=== PATIENT | male | born 2000 | race Caucasian/White ===

== ENCOUNTER 2022-12-11 07:46 | Emergency (ER) | payer BC, SELFPAY ==
[2022-12-11] VITALS (16 sets, daily range): BP systolic 110–136; BP diastolic 81–88; PULSE 59–100; RESP 13–22; TEMP 36.3; O2SAT 97–100
--- NOTE | ~2022-12-11 | XR_ITS ---
Clinical Indication: Chest pain PA and lateral views of the chest: Comparison: 03/30/2004 Findings: The lungs are clear, without evidence of focal consolidation or pleural effusion. Cardiome diastinal silhouette is within normal limits. Bones and soft tissues are unremarkable. Impression: Normal chest. Reviewed, dictated and finalized at location . Impression: Normal chest.
--- NOTE | 2022-12-11 08:07 | ECG_ITS ---
Measurements Intervals [place] Rate: 86 P: 64 CT: 144 QRS: 55 QRSD: 94 T: 38 QT: 335 QTc: 401 Interpretive Statements SINUS RHYTHM NORMAL ECG NO PREVIOUS ECG AVAILABLE FOR COMPARISON Electronically Signed On 12-11-2022 8:27:48 CDT by Bryant Chritsensen D.O.
[2022-12-11] MEDS: KETOROLAC 30 MG/ML VIAL (*BKC) IV PUSH (08:14)
--- NOTE | 2022-12-11 08:24 | PC.NURSE ---
Pt went to XRay via wheelchair.
[2022-12-11 08:30] LABS: Basophils Absolute Auto 0.1 K/mm3 (0.0-0.1); Basophils Percent Auto 0.6 % (0.2-1.2); Eosinophils Absolute Auto 0.5 K/mm3 (0-0.3); Eosinophils Percent Auto 4.3 % (0-4.4); Immature Granulocyte Absolute 0.04 K/mm3 (0.00-0.031); Immature Granulocyte Percent A 0.3 % (0-0.5); Lymphocytes Absolute Auto 4.91 K/mm3 (0.9-3.2); Lymphocytes Percent Auto 41.8 % (18.3-44.2); Mean Corpuscular HGB Conc 34.1 g/dl (32-36); Mean Corpuscular Hemoglobin 29.9 pg (26-34); Mean Corpuscular Volume 87.6 fl (80-100); Mean Platelet Volume 10.7 fl (7.4-10.4); Monocytes Absolute Auto 1.2 K/mm3 (0.1-0.6); Monocytes Percent Auto 9.8 % (2.6-8.5); Neutrophils Absolute Auto 5.1 K/mm3 (1.3-6.7); Neutrophils Percent Auto 43.2 % (45.5-73.1); Platelet Count Result 277 k/mm3 (150-375); Red Blood Count 5.02 M/mm3 (4.6-6.20); Red Cell Distribution Width 12.9 % (11.5-14.5); White Blood Count 11.8 K/mm3 (4.5-10.0)
[2022-12-11 08:43] LABS: Alanine Aminotransferase 105 U/L (6-50); Albumin Level 4.7 g/dL (3.5-5.1); Alkaline Phosphatase 108 U/L (38-126); Anion Gap 8 mmol/L (8-16); Aspartate Amino Transferase 50 U/L (17-59); Bilirubin,Total 1.1 mg/dL (0.2-1.3); Blood Urea Nitrogen 13 mg/dL (9-20); Calcium 9.7 mg/dL (8.4-10.2); Carbon Dioxide 31 mmol/L (22-30); Chloride 99 mmol/L (98-107); Estimated Glomerular Filt Rate > 60; Glucose 105 mg/dL (65-110); Potassium 3.6 mmol/L (3.4-5.0); Sodium 138 mmol/L (137-145)
[2022-12-11 08:47] LABS: Prothrombin Time 13.6 Seconds (11.1-14.7)
[2022-12-11 08:48] LABS: Partial Thromboplastin Time 28.9 SECONDS (22.3-36.8)
[2022-12-11 08:51] LABS: Troponin I < 0.012 ng/mL (0.000-0.034)
--- NOTE | 2022-12-11 09:18 | PC.NURSE ---
Pt mother called for an update. Pt agreed for RN to give information.
--- NOTE | 2022-12-11 09:56 | ED.CHESTPAIN ---
HPI - Chest Pain General Chief Complaint: Chest Pain Stated Complaint: cp Time Seen by Provider: 12/11/22 07:52 History of Present Illness HPI narrative: Patient is a 22-year-old male who presents ER with right-sided chest pain. It is near the nipple. Began last night while he was lifting boxes at work. No exertional chest discomfort. No difficulty breathing. No runny nose or sore throat or productive cough. No personal heart history or family history of heart disease. It is found no modifying factors. Related Data Home Medications Medication Instructions Recorded Confirmed lisdexamfetamine 50 mg capsule 50 mg PO DAILY 06/16/19 (Vyvanse) Allergies Allergy/AdvReac Type Severity Reaction Status Date / Time No Known Allergies Allergy Verified 12/11/22 07:59 Review of Systems Review of Systems: All systems reviewed & are unremarkable except as noted in HPI and below Constitutional: Constitutional: Denies chills, Denies fatigue and Denies fever(s) ENT: Denies nasal congestion and Denies sore throat Cardiovascular: Cardiovascular: Reports chest pain, Denies rapid heart rate and Denies radiating jaw, neck or arm pain Respiratory: Respiratory: Denies cough, Denies dyspnea and Denies wheezing Gastrointestinal: Gastrointestinal: Denies abdominal pain, Denies nausea and Denies vomiting PMFSH Past Medical History Medical History (Updated 12/11/22 @ 09:57 by Brennan Hampton MD) History of ADHD Surgical History Surgical History (Updated 06/16/19 @ 10:14 by Macarena Mcgowan PA-C) Status post myringotomy with insertion of tube Social History Social History (Updated 06/16/19 @ 10:14 by Macarena Mcgowan PA-C) Smoking status: Never smoker Exam Narrative: GENERAL: Well-appearing, well-nourished, and in no acute distress. HEAD: Normocephalic, atraumatic. ENT:Mucous membranes moist. NECK: Supple. CHEST: Clear to auscultation. No respiratory distress. Mild tenderness with palpation right anterior chest wall. HEART: Regular rate and rhythm. Normal peripheral pulses. ABDOMEN: Soft, nontender, nondistended. EXTREMITIES: Normal range of motion. No edema. SKIN: Warm, dry, no rash. NEURO: Alert and oriented x3. PSYCH: Flat mood/affect. Course Course Emergency Course: Patient resting comfortably. Pain improved with Toradol. Discussed lab and x-ray findings as well as normal EKG. Patient felt appropriate for discharge home. Vital Signs Vital signs: Vital Signs Temperature 97.4 F L 12/11/22 07:55 Pulse Rate 98 12/11/22 07:55 Respiratory Rate 17 12/11/22 07:55 Blood Pressure 134/88 12/11/22 07:55 Pulse Oximetry 100 12/11/22 07:55 Temperature 97.4 F L 12/11/22 07:55 Pulse Rate 60 12/11/22 09:45 Respiratory Rate 13 12/11/22 09:45 Blood Pressure 119/84 12/11/22 09:15 Pulse Oximetry 100 12/11/22 09:45 MDM - Chest Pain Lab Data 12/11/22 08:23 12/11/22 08:23 Labs: Lab Results 12/11/22 Range/Units 08:23 WBC 11.8 H (4.5-10.0) K/mm3 RBC 5.02 (4.6-6.20) M/mm3 Hgb 15.0 (14.0-18.0) g/dL Hct 44.0 (42.0-52.0) % MCV 87.6 (80-100) fl MCH 29.9 (26-34) pg MCHC 34.1 (32-36) g/dl RDW 12.9 (11.5-14.5) % Plt Count 277 (150-375) k/mm3 MPV 10.7 H (7.4-10.4) fl Immature Gran % (Auto) 0.3 (0-0.5) % Neut % (Auto) 43.2 L (45.5-73.1) % Lymph % (Auto) 41.8 (18.3-44.2) % [place] % (Auto) 9.8 H (2.6-8.5) % Eos % (Auto) 4.3 (0-4.4) % Baso % (Auto) 0.6 (0.2-1.2) % Lymph # (Auto) 4.91 H (0.9-3.2) K/mm3 [place] # (Auto) 1.2 H (0.1-0.6) K/mm3 Eos # (Auto) 0.5 H (0-0.3) K/mm3 Baso # (Auto) 0.1 (0.0-0.1) K/mm3 Abs Immat Gran (auto) 0.04 H (0.00-0.031) K/mm3 Absolute Neuts (auto) 5.1 (1.3-6.7) K/mm3 Absolute Nucleated RBC 0.0 (0.0-0.012) K/mm3 Nucleated RBC % 0.0 (0.0-0.2) % PT 13.6 (11.1-14.7) Seconds INR 1.0 APTT 28.9 (22.3-36.8) SECONDS Sodium 138 (137-14
== END 2022-12-11 10:00 | disposition home or self-care (01) ==
PROVIDERS: Emergency Provider Emergency Medicine; PCP Nurse Practitioner Family
DX: R07.89 Other chest pain (principal); F90.9 Attention-deficit hyperactivity disorder, unspecified type
CPT/HCPCS: 36415; 71046; 80053; 84484; 85025; 85610; 85730; 93005; 96374; 99284; J1885

== ENCOUNTER 2023-09-19 13:23 | Emergency (ER) | payer BC, SELFPAY ==
--- NOTE | ~2023-09-19 | US_ITS ---
EXAMINATION: US scrotum doppler DATE: 09/19/2023 14:40 INDICATION: Left scrotal abscess. TECHNIQUE: Grayscale and Doppler ultrasound images of the testes were obtained. COMPARISON: None. FINDINGS: The right testis measures 3.9 x 2.6 x 2.6 cm. The left testis measures 4.4 x 2.8 x 2.4 cm. There is normal vascular flow to both testes. The right epididymis demonstrates a 3 mm cyst. The left epididymis is normal with normal vascular flow. There is no varicocele or hydrocele. There is scrota l skin thickening on the left. No drainable abscess. IMPRESSION: 1. Scrotal skin thickening on the left. No drainable abscess. Reviewed, dictated and finalized at location A.
[2023-09-19 13:25] VITALS: BP 131/77; PULSE 90; RESP 16; TEMP 36.8; O2SAT 99
--- NOTE | 2023-09-19 13:56 | ED.SKABFB ---
HPI - Skin/Abscess/Foreign Bdy General Chief complaint: Skin/Abscess/Foreign Body Stated complaint: testicle absess, drainage Time Seen by Provider: 09/19/23 13:58 Focused HPI: Omid is a 23-year-old male patient presenting to the emergency room today with complaints of possible testicle abscess/drainage. He reports that his left testicle became swollen on Sunday and over the last day or 2 is began to drain. Is having brown bloody discharge with redness and swelling to the left testicle. Drainage is coming from the left upper scrotum General: Well-developed, well nourished, in no apparent distress. Head: Normocephalic, atraumatic. Cardio: Regular rate and rhythm, s1 and s2 normal, no murmur appreciated. Resp: Clear to auscultation bilaterally, no rhonchi, rales, wheezing or rubs. Abdomen: Soft, pliable, bowel sounds present in all quadrants, non-tender to palpation, no organomegly, no CVAT tenderness. : Circumcised male with left testicular swelling, redness, very tender to palpation with induration, brown bloody drainage noted to the left upper scrotum Patient screened in triage and initial orders placed. Additional care and disposition to be based upon diagnostic testing and treatment. Source: patient Mode of arrival: ambulatory Limitations: no limitations Related Data Allergies Allergy/AdvReac Type Severity Reaction Status Date / Time No Known Allergies Allergy Verified 12/11/22 07:59 [facility] Past Medical History Medical History History of ADHD Surgical History Surgical History Status post myringotomy with insertion of tube Social History Social History Smoking status: Never smoker Comments At the time of my signature, I reviewed and agree with the nursing past medical, surgical, social, and family history. There is no relevant family history pertinent to the patient complaint. Course Course Emergency Course: Portions of this record may have been created with voice recognition software. Vital Signs Vital signs: Vital Signs Temperature 36.8 C 09/19/23 13:25 Pulse Rate 90 09/19/23 13:25 Respiratory Rate 16 09/19/23 13:25 Blood Pressure 131/77 09/19/23 13:25 Pulse Oximetry 99 09/19/23 13:25 Temperature 36.8 C 09/19/23 17:38 Pulse Rate 87 09/19/23 17:38 Respiratory Rate 16 09/19/23 17:38 Blood Pressure 138/64 09/19/23 17:38 Pulse Oximetry 99 09/19/23 17:38 Vital signs reviewed MDM - Skin/Abscess/Foreign Bdy Lab Data 09/19/23 14:14 09/19/23 14:13 Labs: Lab Results 09/19/23 09/19/23 Range/Units 14:13 14:14 WBC 14.6 H (4.5-10.0) K/mm3 RBC 5.06 (4.6-6.20) M/mm3 Hgb 15.0 (14.0-18.0) g/dL Hct 44.4 (42.0-52.0) % MCV 87.7 (80-100) fl MCH 29.6 (26-34) pg MCHC 33.8 (32-36) g/dl RDW 12.3 (11.5-14.5) % Plt Count 303 (150-375) k/mm3 MPV 11.0 H (7.4-10.4) fl Immature Gran % (Auto) 0.4 (0-0.5) % Neut % (Auto) 71.0 (45.5-73.1) % Lymph % (Auto) 20.5 (18.3-44.2) % [place] % (Auto) 6.3 (2.6-8.5) % Eos % (Auto) 1.4 (0-4.4) % Baso % (Auto) 0.4 (0.2-1.2) % Lymph # (Auto) 2.99 (0.9-3.2) K/mm3 [place] # (Auto) 0.9 H (0.1-0.6) K/mm3 Eos # (Auto) 0.2 (0-0.3) K/mm3 Baso # (Auto) 0.1 (0.0-0.1) K/mm3 Abs Immat Gran (auto) 0.06 H (0.00-0.031) K/mm3 Absolute Neuts (auto) 10.3 H (1.3-6.7) K/mm3 Absolute Nucleated RBC 0.000 (0.0-0.012) K/mm3 Nucleated RBC % 0.0 (0.0-0.2) % Sodium 138 (137-145) mmol/L Potassium 4.2 (3.4-5.0) mmol/L Chloride 105 (98-107) mmol/L Carbon Dioxide 25 (22-30) mmol/L Anion Gap 8 (4-12) mmol/L BUN 11 (9-20) mg/dL Creatinine 0.80 (0.7-1.3) mg/dL Estim Creat Clear Calc 117 ml/min Estimated GFR > 60 (59 - ) Glucose 99 (65-110) mg/dL Lact
[2023-09-19 14:36] LABS: Alanine Aminotransferase 61 U/L (6-50); Alkaline Phosphatase 120 U/L (38-126); Anion Gap 8 mmol/L (4-12); Aspartate Amino Transferase 43 U/L (17-59); Bilirubin,Total 1.5 mg/dL (0.2-1.3); Blood Urea Nitrogen 11 mg/dL (9-20); Calcium 10.1 mg/dL (8.4-10.2); Carbon Dioxide 25 mmol/L (22-30); Chloride 105 mmol/L (98-107); Estimated CRCL calculation 117 ml/min; Estimated Glomerular Filt Rate > 60; Glucose 99 mg/dL (65-110); Potassium 4.2 mmol/L (3.4-5.0); Sodium 138 mmol/L (137-145)
[2023-09-19 14:38] LABS: Basophils Absolute Auto 0.1 K/mm3 (0.0-0.1); Basophils Percent Auto 0.4 % (0.2-1.2); Eosinophils Absolute Auto 0.2 K/mm3 (0-0.3); Eosinophils Percent Auto 1.4 % (0-4.4); Hematocrit 44.4 % (42.0-52.0); Immature Granulocyte Absolute 0.06 K/mm3 (0.00-0.031); Immature Granulocyte Percent A 0.4 % (0-0.5); Lymphocytes Absolute Auto 2.99 K/mm3 (0.9-3.2); Lymphocytes Percent Auto 20.5 % (18.3-44.2); Mean Corpuscular HGB Conc 33.8 g/dl (32-36); Mean Corpuscular Hemoglobin 29.6 pg (26-34); Mean Corpuscular Volume 87.7 fl (80-100); Monocytes Absolute Auto 0.9 K/mm3 (0.1-0.6); Monocytes Percent Auto 6.3 % (2.6-8.5); Neutrophils Absolute Auto 10.3 K/mm3 (1.3-6.7); Platelet Count Result 303 k/mm3 (150-375); Red Blood Count 5.06 M/mm3 (4.6-6.20); Red Cell Distribution Width 12.3 % (11.5-14.5); White Blood Count 14.6 K/mm3 (4.5-10.0)
[2023-09-19 15:29] LABS: Appearance Urine Cloudy (Clear); Bacteria Urine None Seen /hpf; Bilirubin Urine Negative (Negative); Blood Urine Negative (Negative); Color Urine Yellow (Yellow); Glucose Urine UA Negative (Negative); Ketones Urine Trace mg/dL (Negative); Leukocyte Esterase Ur Negative LEU/UL (Negative); Need Manual Microscopic Reviewed; Nitrate Urine Negative (Negative); Protein Urine Negative (Negative); RBC Urine 0-2 /hpf (0-2); Squamous Epithelial Cell Urine None Seen /hpf (Few); WBC Urine 0-5 /hpf (0-3); pH Urine 6.5 (5.0-9.0)
[2023-09-19 15:47] LABS: Add Urine Microscopic? YES; Specific Grav Ur 1.033 (1.001-1.035)
--- NOTE | 2023-09-19 16:20 | ED.GENADULT ---
HPI - General Adult General Chief complaint: Skin/Abscess/Foreign Body Stated complaint: testicle absess, drainage Time Seen by Provider: 09/19/23 13:58 Source: patient Mode of arrival: ambulatory Limitations: no limitations History of Present Illness HPI narrative: 23 years old white male came to the hospital by private car from home complaining of pain, swelling and discharge from the left side of his scrotum started 4 days ago. Denies any fever, chills, nausea, vomiting or any recent trauma. Patient not on any medications at home, not sexually active Related Data Allergies Allergy/AdvReac Type Severity Reaction Status Date / Time No Known Allergies Allergy Verified 12/11/22 07:59 Review of Systems Review of Systems: All systems reviewed & are unremarkable except as noted in HPI and below PMFSH Past Medical History Medical History History of ADHD Surgical History Surgical History Status post myringotomy with insertion of tube Social History Social History Smoking status: Never smoker Exam Narrative: General appearance: Well-developed, well-nourished Skin: Normal color Head: Normocephalic, nontraumatic Eyes: Clear conjunctiva ENT: Oropharynx normal, ears normal, nose normal Neck: Supple, nontender Chest and respiratory: Airway patent, no respiratory distress, no accessory muscle use Heart: Regular rate/rhythm Abdomen: Soft, nontender, no organomegaly, quiet bowel sounds Vascular: Normal peripheral pulses, normal capillary refill. Musculoskeletal: Normal range of motion, nontender back Neurologic: Alert and oriented ?3, TEMPLATE MAKER is normal as tested, no gross motor deficit : Scrotum: scrotal swelling (Diffuse swelling, tenderness, redness left side of the testicles with purul) on the left Course Consultations Consultation #1: DR WU REQUESTED TO DISCHARGE PATIENT HOME ON AUGMENTIN AND HIS PLAN TO SEE HIM COMING 4-5 DAYS Date: 09/19/23 Time: 17:12 Vital Signs Vital signs: Vital Signs Temperature 36.8 C 09/19/23 13:25 Pulse Rate 90 09/19/23 13:25 Respiratory Rate 16 09/19/23 13:25 Blood Pressure 131/77 09/19/23 13:25 Pulse Oximetry 99 09/19/23 13:25 Temperature 36.8 C 09/19/23 13:25 Pulse Rate 90 09/19/23 13:25 Respiratory Rate 16 09/19/23 13:25 Blood Pressure 131/77 09/19/23 13:25 Pulse Oximetry 99 09/19/23 13:25 Medical Decision Making MDM Narrative Medical decision making narrative: PATIENT PRESENTS WITH PAIN AND SWELLING AND REDNESS AND DISCHARGE FROM LEFT SIDE OF THE SCROTUM PHYSICAL EXAMINATION SHOWED 2 MM HOLE LEAKING PURULENT DISCHARGE AT THE LEFT SIDE OF THE SCROTUM CLOSE TO THE BASE OF THE PENIS, CULTURE OBTAINED, PATIENT RECEIVED 1 G OF INVANZ IV, SCROTAL ULTRASOUND SHOWED FINDING CONSISTENT WITH CELLULITIS, NO DRAINABLE ABSCESS. BLOOD WORKUP TODAY SHOWED WBC OF 14.6 CLEAN URINE, PATIENT TO BE DISCHARGED ON AUGMENTIN, DISCUSSED WITH DR. WU TO FOLLOW UP WITH HIM IN 5 DAYS Differential Diagnosis Differential Diagnosis: ABOVE Medical Records Medical records reviewed: Yes I reviewed the external patient's medical records. Vital Signs Vital Signs: Vital Signs Temperature 36.8 C 09/19/23 13:25 Pulse Rate 90 09/19/23 13:25 Respiratory Rate 16 09/19/23 13:25 Blood Pressure 131/77 09/19/23 13:25 Pulse Oximetry 99 09/19/23 13:25 Temperature 36.8 C 09/19/23 13:25 Pulse Rate 90 09/19/23 13:25 Respiratory Rate 16 09/19/23 13:25 Blood Pressure 131/77 09/19/23 13:25
[2023-09-19] MEDS: ERTAPENEM 1 GM/NS 50 ML 1 GM/50 ML BAG IVPB (16:58)
[2023-09-19 17:38] VITALS: BP 138/64; PULSE 87; RESP 16; TEMP 36.8; O2SAT 99
== END 2023-09-19 17:48 | disposition home or self-care (01) ==
PROVIDERS: Nurse Practitioner Family; Emergency Provider Emergency Medicine; PCP Nurse Practitioner Family
DX: N49.2 Inflammatory disorders of scrotum (principal)
CPT/HCPCS: 36415; 76870; 80053; 81001; 83605; 85025; 87040; 87070; 87147; 87181; 87205; 93976; 96365; 99284; J1335

== ENCOUNTER 2025-03-31 18:45 | Emergency (ER) | payer BC, SELFPAY ==
[2025-03-31 19:04] VITALS: BP 132/80; PULSE 76; RESP 16; TEMP 36.7; O2SAT 99
[2025-03-31 19:55] LABS: Add Urine Microscopic? YES; Appearance Urine Clear (Clear); Glucose Urine UA Negative (Negative); Leukocyte Esterase Ur Negative LEU/UL (Negative); Nitrate Urine Negative (Negative); Non Pathogenic Casts 0-2; Specific Grav Ur 1.038 (1.001-1.035)
--- NOTE | 2025-03-31 19:58 | ED_ITS ---
HPI - Back Pain/Injury General Chief Complaint: Back Pain/Injury Stated Complaint: low back pain, no injury, ambulatory Time Seen by Provider: 03/31/25 19:51 Source: patient Mode of arrival: ambulatory Limitations: no limitations History of Present Illness HPI Narrative: This is a 24-year-old male with no significant past medical history who presents to the ED for back pain. Patient states that he works at [employer] and yesterday began to have a low back pain. He does not recall any specific injury. Denies changes in urination, fevers, chills. Denies numbness, tingling. He tried ibuprofen with minimal relief. Related Data Allergies Allergy/AdvReac Type Severity Reaction Status Date / Time No Known Allergies Allergy Verified 03/31/25 18:46 Review of Systems Review of Systems: Gen.: Denies fevers or chills Eyes: Denies eye pain or visual change ENT: Denies congestion Respiratory: Denies shortness of breath or cough CV: Denies chest pain or palpitations GI: Denies abdominal pain nausea, emesis or diarrhea denies burning, urgency, frequency or hematuria Musculoskeletal: As per HPI Neuro: Denies numbness, tingling, weakness or focal weakness Skin: Denies rash Except as documented, all other systems reviewed and negative PMFSH Past Medical History Medical History History of ADHD Surgical History Surgical History Status post myringotomy with insertion of tube Social History Social History Smoking status: Never smoker Exam Narrative: APPEARANCE: No acute distress, nontoxic, resting in bed HEENT: Normocephalic, atraumatic, OMM RESPIRATORY: No respiratory distress CARDIOVASCULAR: Appears well perfused ABDOMINAL: Nondistended MUSCULOSKELETAl: Moves all extremities. No obvious deformities. Mild tenderness to palpation to the bilateral paraspinal upper lumbar muscles. No midline tenderness, step-offs, deformities. NEURO: Awake and alert. SKIN:: Warm, dry. No rashes lesions or abrasions PSYCHIATRIC: Normal affect/mood, Course Vital Signs Vital signs: Vital Signs Temperature 98.1 F 03/31/25 19:04 Pulse Rate 76 03/31/25 19:04 Respiratory Rate 16 03/31/25 19:04 Blood Pressure 132/80 03/31/25 19:04 Pulse Oximetry 99 03/31/25 19:04 Oxygen Delivery Room Air 03/31/25 19:04 Temperature 98.1 F 03/31/25 19:04 Pulse Rate 76 03/31/25 19:04 Respiratory Rate 16 03/31/25 19:04 Blood Pressure 132/80 03/31/25 19:04 Pulse Oximetry 99 03/31/25 19:04 Oxygen Delivery Room Air 03/31/25 19:04 MDM - Back Pain/Injury MDM Narrative Medical decision making narrative: 24-year-old male presenting for low back pain. On initial evaluation patient was in no acute distress, afebrile hemodynamically stable. He had mild lumbar paraspinal tenderness to palpation without midline spinal tenderness, step-offs, deformities. In no red flag signs for cauda equina or epidural abscess. Imaging is not indicated at this time. UA clear. Patient was given Toradol and Lidoderm. He was deemed appropriate for discharge at this time. He was given prescriptions for Lidoderm and Flexeril. He was educated Tylenol ibuprofen use. He was advised follow-up with his PCP in the next week for re-evaluation. Patient was agreeable to this plan. Given strict return precautions. Differential Diagnosis Differential diagnosis: Likely lumbar radiculopathy, strain of lumbar region and renal colic Lab Data Attestation: I reviewed the patient's lab results. Labs: Lab Results 03/31/25 Range/Units 19:43 Urine Color Yellow (Yellow) Urine Appearance Clear (Clear) Urine pH 6.5 (5.0-9.0) Ur Specific [place] 1.038 H (1.001-1.035) Urine Protein Trace (Negative) mg/dL Urine Glucose (UA) Negative (Negative) mg/dL Urine Ketones Trace H (Negative) mg/dL Ur Blood (Man) Negative (Negative) Urine Nitrate Negative (Negative) Urine Bilirubin Negative (Negative) Urine Urobilinogen 1.0 (<2.0) mg/dL Leukocyte Esterase Rfl Negative (Negative) JEAN/UL Urine RBC 0-2 (0-2) /hpf Urine WBC 0-5 (0-3) /hpf Ur Squamous Epith Cells None seen (Few) /hpf Urine Bacteria None seen /hpf Urine Casts 0-2 Discharge Plan Discharge Clinical Impression: Strain of lumbar region Qualifiers: Encounter type: initial encounter Qualified Code(s): S39.012A - Strain of muscle, fascia and tendon of lower back, initial encounter Patient Disposition: Home Condition: Stable Instructions: Antibiotic Form, Acute Low Back Pain (ED) Additional Instructions: You likely have a strain of your lumbar muscles. Take Tylenol and ibuprofen for this. You were also given prescriptions for Lidoderm and Flexeril, take these as prescribed. Follow up with her PCP in the next week for re-evaluation. Return to the ED for any new or worsening symptoms. For pain, discomfort or temperature greater than or equal to 100.8 ?F please alternate the following 2 medications as needed. First medication- acetaminophen/Tylenol- 1000mg every 6-8 hours as needed for above indications. Second medication- ibuprofen/Motrin-600mg every 6-8 hours as needed for above indication. Patient Language: [place] Citizen Prescriptions: New lidocaine [Lidoderm] 5 % adhesive patch,medicated 1 patch topical DAILY Qty: 15 0RF Rx Instructions: leave on most painful area for up to 12 hrs cyclobenzaprine 10 mg tablet 10 mg PO HS PRN (Reason: muscle spasm) Qty: 30 0RF No Action amoxicillin-pot clavulanate [Augmentin] 500-125 mg tablet 1 tablet PO Q8H Qty: 30 0RF Follow-up/Referrals: RAYNE,MARISOL RODRIGUEZ [Primary Care Provider] Stand Alone Forms: Work/School Release IP
[2025-03-31] MEDS: KETOROLAC 30 MG/ML VIAL (*BKC) IM (20:05)
[2025-03-31] MEDS: LIDOCAINE 5% PATCH 1 PATCH TRANSDERM (20:05)
--- OUTSIDE RECORDS SUMMARY | 2025-03-31 20:06 | XMS_ITS | Clinical Summary ---
Author Organization [facility] Address [address] [place] [address] Care Team Providers Care Box Feeder Name Role Phone Mey Akers APRN-MAJOR GIFTS MANAGER Primary Care Provider [phone] Source Comments [facility],non-owned Affiliates and Associated Physician Practices is amultiple site organization consisting of ambulatory clinics and hospital sitesin [place], [place], [place] and [place]. This disclosure is being madepursuant to the Care Everywhere program and may not contain all information available regarding this patient. Last updated 18.[facility] Allergies No known active allergies Medications * Be aware that medications may not be up to date on this document. Alwaysverify current medications with the patient. lisdexamfetamine (VYVANSE) 50 MG capsule Take 50 mg by mouth once daily 04/14/2019 Active Active Problems Problem Noted Date Diagnosed Date Periumbilical abdominal pain 05/06/2019 History of bloody stools 05/06/2019 History of colitis 05/06/2019 Chronic abdominal pain 03/13/2019 Colitis 03/13/2019 Blood in stool 03/13/2019 Frequent headaches - monitor Naproxen use 2018 ADHD (attention deficit hyperactivity disorder) 09/16/2014 Anger/aggression 09/16/2014 Immunizations Immunization Administration Dates Next Due DTaP VACCINE IM (6wk-6yrs) 10/15/2007,,2002,08/21,2002 FLU VACCINE TRI IIV3 SPLIT P F IM (FLUVIRIN) 06/08/2009 HEP A PEDS 2 DOSE 11/23/2006,02/03/2006 HEP B VACCINE, PED/ADOL 01/27/2003,2002, HIB BOOSTER 01/25/2004, 3,2002,06/23 Human Papilloma Virus Marvin valent Vaccine 06/29/2014,02/27/2014,12/18/2013 INFLUENZA VACCINE 04/09/2007,05/28/2006,04/27/20 03 INFLUENZA VACCINE, QUADR. (F LUZONE; FLULAVAL; FLUARIX; AFLURIA QUADRIVALENT; 6MO+), 0.5 ML (IIV4) 04/11/2018,03/23/2017,02/24/2016,05/27 Influenza Nasal 04/03/2011 DONOVAN VACCINE QUAD LAIV4 PF NASAL 02/27/2014,2012 MENINGOCOCCAL ACWY (MCV4P) VAC IM 11/21/2018,03/2014 MMR 10/15/2007,04/27/2003 PNEUMOCOCCAL CONJ, PEDS 04/27/2003,10/21,2002,06/23 POLIO IPV 10/15/2007, 4,2002,06/23 PPD 04/27/2003 TDAP (7yrs+) 12/18/2013 VARICELLA 10/15/2007,07/27/2003 Family History Medical History Relation Name Comments Other Maternal Aunt IBS Hypertension Maternal Grandmother Other Maternal Grandmother GERD Other Mother GERD Hypertension Paternal Grandfather Other Sister GERD, CP Celiac Disease Neg Hx Crohn's Disease Neg Hx Ulcerative Colitis Neg Hx Relation Name Status Comments Maternal Aunt Maternal Grandmother Mother Paternal Grandfather Sister Social History Tobacco Use Types Packs/Day Years Used Date Smoking Tobacco: Passive Smo ke Exposure - Never Smoker Smokeless Tobacco: Never Alcohol Use Standard Drinks/Week Comments Not Asked 0 (1 standard drink = 0.6 oz pur e alcohol) Sex and Gender Information Value Date Recorded Sex Assigned at Not on file Legal Sex Male 5:41 AM CURTAIN SUPERVISOR Gender Identity Not on file Sexual Orientation Not on file Last Filed Vital Signs Vital Sign Reading Time Taken Comments Blood Pressure 106/62 05/06/2019 1:29 PM CURTAIN SUPERVISOR Pulse 79 11/21/2018 1:11 PM CDT Temperature 36.6 C (97.9 F) 11/21/2018 1:11 PM CDT Respiratory Rate 24 06/24/2009 3:50 PM CURTAIN SUPERVISOR Oxygen Saturation - - Inhaled Oxygen Concentration - - Weight 55.7 kg (122 lb 12.8 oz) 05/06/2019 1:29 PM CURTAIN SUPERVISOR Height 176 cm (5' 9.29) 05/06/2019 1:29 PM CURTAIN SUPERVISOR Body Mass Index 17.98 05/06/2019 1:29 PM CURTAIN SUPERVISOR Plan of Treatment Health Maintenance Due Date Last Done Comments HIV SCREENING 2017 MENINGOCOCCAL (Group B) VACC INE SHARED DECISION-MAKING (1 of 2 - Standard) 2018 HEPATITIS C SCREENING 04/17/2020 DTAP/TDAP/TD VACCINES (7 - T d or Tdap) 12/19/2023 12/18/2013, 10/15/2007, 01/25/2004, Additional history exists DEPRESSION SCREENING 06/11/2024 COVID-19 VACCINE ( - 2023-2 5 season) 2025 INFLUENZA VACCINE (#1) 2025 8, 03/23/2017, 02/24/2016, Additional history exists ZOSTER VACCINE (1 of 2) 2052 HEPATITIS B VACCINE Completed 01/27/2003, 2002, 2002 PNEUMOCOCCAL VACCINE Completed 04/27/2003, 2002, 2002, Additional history exists HIB VACCINE Completed 01/25/2004, 10/09, 2002, Additional history exists HPV VACCINE Completed 06/29/2014, 02/09, 12/18/2013 MENINGOCOCCAL GROUPS A/C/Y/W VACCINE Completed 11/21/2018, 12/18/2013 Goals Goal Patient Goal Type Associated Problems Recent Progress Patient-Stated? Author Use safety retraint in car Lifestyle On track( 019 1:12 PM CDT) Evelyn Guerra RN Insurance MEDICAID - [place] MEDICAID - OUT OF STATE * Guarantor: SIGIFREDO GEORGE Account Type Relation to Patient Date of Phone Billing Address Personal/Family [address] [place] [address] Care Teams Box Feeder Relationship Specialty Start Date End Date Mey Akers APRN-BHARAT [address] [place] [address] PCP - General Nurse Practitioner 05/06/19
== END 2025-03-31 20:43 | disposition home or self-care (01) ==
PROVIDERS: Emergency Provider Student in an Organized Health Care Education/Training Program; PCP Nurse Practitioner Family
DX: S39.012A Strain of muscle, fascia and tendon of lower back, initial encounter (principal); X58.XXXA Exposure to other specified factors, initial encounter
CPT/HCPCS: 81001; 96372; 99283; A9270; J1885